=== PATIENT | female | born 1970 | race Caucasian/White ===

== ENCOUNTER 2016-10-11 20:02 | Emergency (ER) | payer BC, MEDICARE ==
--- NOTE | ~2016-10-11 | CR63 ---
[facility] A Service of [facility] & [facility] RADIOLOGY TEXT RESULTS PATIENT: ANU HYDE LOCATION: [facility] : 68 UNIT #: [id number] AGE: [address]: MARGARITO OWEN APRN SEX: F ORDER DR: [id number] [facility] [address] [place] [address]. [place], [place] [address] [id number] MR#: [id number] Acc #: [id number] NAME: ANU HYDE : 1970 SEX: F STUDY DATE/TIME: 10/11/2016 23:23 UNIT: [facility] ROOM: STUDY DESCRIPTION: CR Chest 2 View Attending Physician: Margarito Owen Aprn Ordering Physician: Margarito Owen Aprn Primary Care Physician: Johanne Mahajan M.D. MEDICAL IMAGING REPORT This report is preliminary unless electronic signature is present EXAM 2-view chest INDICATIONS Cough and shortness of air for the past few days. PROCEDURE Frontal and lateral views of the chest. COMPARISON 10/02/2015 FINDINGS Heart size normal. No dense consolidation. No pleural fluid or pneumothorax. IMPRESSION No active process Dictated by... Ovi Goddard M.D. THIS IS AN ELECTRONICALLY VERIFIED REPORT Ovi Goddard M.D. at 10/12/2016 10:06 PM FAZAL/julianne TD: 10/12/2016 01:21 JOB #: [id number] MEDICAL IMAGING REPORT Page 1 of 1 COPY
[~2016-10-11 20:02] MED LIST: ADVAIR 100-501 EAC1 INH; ADVAIR 2501 DISK W/D PO; ALBUTEROL MININEB NEB; ALBUTEROL17 GM INH; AMOXICILLIN PO; ASACOL400 MG; ASACOL400 MG PO; AUGMENTIN875 M1 PO; AZACOL PO; AZITHROMYCIN250 MG PO; CHANTIX PO; CLARITIN10 M3; DELZICOL400 M1 PO; DOXYCYCLINE HY100 M3 PO; FLONASE 0.05% N16 G1; FLONASE16 GM; HUMARA; HUMERA INJ; HUMIBID L.1 TAB.SR . PO; HUMIRA20 MG/0.4 SQ; HUMIRA40 MG/0.1 SQ; MEDROL PO; MEDROL4 MG/DOSE- PO; NICOTINE TRANSD14 MG EXT; OCEAN45 ML; PATIENT'S PHARMACY; PHENERGAN PO; PREDNISONE PO; PREDNISONE1 MG PO; PREDNISONE10 MG PO; PROAIR PO; PROCTOZONE-HC30 G2 TOP; PROMETHAZINE-D240 ML PO; PROTONIX PO; PULMICORT200 MCG/AE INH; SINGULAIR PO; SPIRIVA18 MCG INH; SUDAFED PO; ULTRAM PO; VIBRAMYCIN100 M1 PO; XOPENEX0.31 MG/3 INH; ZITHROMAX PO
== END 2016-10-12 02:58 | disposition home or self-care (01) ==
LOC: CED 20:02 → CFTX 20:02 → CED 23:00
DX: J44.1 Chronic obstructive pulmonary disease with (acute) exacerbation (principal); K21.9 Gastro-esophageal reflux disease without esophagitis; Z98.890 Other specified postprocedural states; F17.210 Nicotine dependence, cigarettes, uncomplicated; Z71.6 Tobacco abuse counseling; Z79.899 Other long term (current) drug therapy
CPT/HCPCS: 71020; 94640; 99283

== ENCOUNTER → 2016-11-13 | Outpatient (CLI) | payer BC, MEDICARE ==
[2016-11-15 12:58] LABS: HEP B SURFACE AG Nonreactive (Nonreactive)
[2016-11-16 22:45] LABS: NIL 0.17 IU/mL (()); QUANTIFERON NEGATIVE (Negative); TB AG-NIL <0.00 IU/mL (())
== END | disposition home or self-care (01) ==
LOC: SLAB 12:32
PROVIDERS: Internal Medicine Gastroenterology
DX: K50.90 Crohn's disease, unspecified, without complications (principal); Z92.25 Personal history of immunosuppression therapy
CPT/HCPCS: 36415; 86480; 86704; 87340

== ENCOUNTER 2016-11-25 23:50 | Emergency (ER) | payer BC, MEDICARE | END 2016-11-26 01:44 | disposition home or self-care (01) | LOC: SED 23:50 | DX: S01.81XA Laceration without foreign body of other part of head, initial encounter (principal); J44.9 Chronic obstructive pulmonary disease, unspecified; Z79.899 Other long term (current) drug therapy; F17.210 Nicotine dependence, cigarettes, uncomplicated; W45.8XXA Other foreign body or object entering through skin, initial encounter; Y92.009 Unspecified place in unspecified non-institutional (private) residence as the place of occurrence of the external cause | CPT/HCPCS: 90471; 90715; 99283 ==